=== PATIENT | female | born 1965 | race American Indian/Alaskan Native ===

== ENCOUNTER 2017-09-16 09:16 | Day surgery (SDC) | payer BC, SELFPAY ==
[~2017-09-16] VITALS: Ht 177.8 cm; Wt 93.1 kg
[~2017-09-16 09:16] MED LIST: BIOTIN10000 MCG PO; Black Cohosh40 M1 PO; CHOL10002 PO; FISH1000 PO; FLAX PO
== END 2017-09-16 11:39 | disposition home or self-care (01) ==
LOC: ORSCSDS 09:16
PROVIDERS: Internal Medicine Gastroenterology
PROC: 0DBC8ZX Excision of Ileocecal Valve, Via Natural or Artificial Opening Endoscopic, Diagnostic (ICD-10-PCS; principal; 2017-09-16 10:30)
PROC: 0DBM8ZX Excision of Descending Colon, Via Natural or Artificial Opening Endoscopic, Diagnostic (ICD-10-PCS; principal; 2017-09-16 10:30)
PROC: 0DBP8ZX Excision of Rectum, Via Natural or Artificial Opening Endoscopic, Diagnostic (ICD-10-PCS; principal; 2017-09-16 10:30)
PROC: 0DBN8ZX Excision of Sigmoid Colon, Via Natural or Artificial Opening Endoscopic, Diagnostic (ICD-10-PCS; principal; 2017-09-16 10:30)
DX: Z12.11 Encounter for screening for malignant neoplasm of colon (principal); Z86.010 Personal history of colon polyps; K57.30 Diverticulosis of large intestine without perforation or abscess without bleeding; Z87.891 Personal history of nicotine dependence; D12.0 Benign neoplasm of cecum; D12.3 Benign neoplasm of transverse colon; D12.4 Benign neoplasm of descending colon; K63.5 Polyp of colon
CPT/HCPCS: 88305; J7120

== ENCOUNTER → 2018-11-08 | Outpatient (CLI) | payer BC | END | disposition home or self-care (01) | LOC: LAB SHORT 14:06 → LAB EV 14:06 | DX: N39.0 Urinary tract infection, site not specified (principal) | CPT/HCPCS: 87077; 87086; 87186 ==

== ENCOUNTER 2019-06-11 10:36 | Day surgery (SDC) | payer BC ==
[~2019-06-11] VITALS: Ht 175.3 cm; Wt 115.4 kg
[~2019-06-11 10:36] MED LIST changes: +LETR2.5; +TERB250
[2019-06-11] MEDS ORDERED: PROGESTERONE100 MG PO (11:24)
--- NOTE | 2019-06-11 11:57 | NUR ---
06/11/19 1157 Silvia Dueñas IN TO SEE PATIENT,CONSENT OBTAINED,MEDICATED AND BLOCK DONE. PT TOLERATED VERY WELL.
== END 2019-06-11 14:45 | disposition home or self-care (01) ==
LOC: ORSCSDS 10:36
PROVIDERS: Orthopaedic Surgery
PROC: 0RNK4ZZ Release Left Shoulder Joint, Percutaneous Endoscopic Approach (ICD-10-PCS; principal; 2019-06-11 12:00)
PROC: 0LQ24ZZ Repair Left Shoulder Tendon, Percutaneous Endoscopic Approach (ICD-10-PCS; principal; 2019-06-11 12:00)
PROC: 0RBK4ZZ Excision of Left Shoulder Joint, Percutaneous Endoscopic Approach (ICD-10-PCS; principal; 2019-06-11 12:00)
DX: M75.112 Incomplete rotator cuff tear or rupture of left shoulder, not specified as traumatic (principal); M75.42 Impingement syndrome of left shoulder; M71.9 Bursopathy, unspecified; Z87.891 Personal history of nicotine dependence; E66.01 Morbid (severe) obesity due to excess calories; Z68.37 Body mass index [BMI] 37.0-37.9, adult
CPT/HCPCS: C1713; J0171; J0690; J1100; J1885; J2001; J2250; J2405; J2704; J2710; J3010; J7120

== ENCOUNTER → 2020-04-11 | Outpatient (CLI) | payer BC ==
[~2020-04-11] MED LIST changes: +PROGESTERONE100 MG PO
== END ==
LOC: LAB EV 18:10 → LAB SHORT 18:10
DX: N39.0 Urinary tract infection, site not specified (principal)
CPT/HCPCS: 87077; 87086; 87186

== ENCOUNTER → 2022-07-01 | Outpatient (CLI) | payer OTHER | LOC: LAB 11:00 → LAB SHORT 11:00 | DX: R30.0 Dysuria (principal) | CPT/HCPCS: 87077; 87086; 87186 ==

== ENCOUNTER 2022-10-01 10:13 | Day surgery (SDC) | payer OTHER ==
[~2022-10-01] VITALS: Ht 175.3 cm; Wt 112.8 kg
--- NOTE | 2022-10-01 12:47 | NUR ---
RECEIVED REPORT FROM ULISES BENITES. PT TOLERATING PEPSI WELL. REPORTS NO PAIN OR NAUSEA. Patient up to Ambulate independently. Gait steady. Discharge instructions reviewed with patient. Patient verbalizes understanding. Copy given to patient to take home. Lungs clear T/O to Auscultation. Discharged via wheelchair to private car for ride home WITH SISTER.
== END 2022-10-01 12:41 | disposition home or self-care (01) ==
LOC: ORSCSDS 10:13
PROVIDERS: Internal Medicine Gastroenterology
PROC: 0DBM8ZX Excision of Descending Colon, Via Natural or Artificial Opening Endoscopic, Diagnostic (ICD-10-PCS; principal; 2022-10-01 11:30)
PROC: 0DBN8ZX Excision of Sigmoid Colon, Via Natural or Artificial Opening Endoscopic, Diagnostic (ICD-10-PCS; principal; 2022-10-01 11:30)
PROC: 0DBL8ZX Excision of Transverse Colon, Via Natural or Artificial Opening Endoscopic, Diagnostic (ICD-10-PCS; principal; 2022-10-01 11:30)
PROC: 0DBK8ZX Excision of Ascending Colon, Via Natural or Artificial Opening Endoscopic, Diagnostic (ICD-10-PCS; principal; 2022-10-01 11:30)
DX: Z12.11 Encounter for screening for malignant neoplasm of colon (principal); Z86.010 Personal history of colon polyps; Z80.0 Family history of malignant neoplasm of digestive organs; D12.2 Benign neoplasm of ascending colon; D12.3 Benign neoplasm of transverse colon; D12.4 Benign neoplasm of descending colon; D12.5 Benign neoplasm of sigmoid colon; K57.30 Diverticulosis of large intestine without perforation or abscess without bleeding; Z87.891 Personal history of nicotine dependence; Z85.3 Personal history of malignant neoplasm of breast
CPT/HCPCS: 88305; J2704; J7120

== ENCOUNTER → 2022-11-16 | Outpatient (CLI) | payer OTHER | END | disposition home or self-care (01) | LOC: LAB SHORT 08:30 → LAB 08:30 | DX: R30.0 Dysuria (principal) | CPT/HCPCS: 87086 ==

== ENCOUNTER → 2023-06-09 | Outpatient (CLI) | payer OTHER | END | disposition home or self-care (01) | LOC: LAB SHORT 09:08 → LAB 09:08 | DX: R30.0 Dysuria (principal) | CPT/HCPCS: 87077; 87086; 87186 ==

== ENCOUNTER 2024-07-23 10:08 | Day surgery (SDC) | payer OTHER ==
[~2024-07-23] VITALS: Ht 175.3 cm; Wt 112.4 kg
[2024-07-23] VITALS (13 sets, daily range): BP systolic 108–147; BP diastolic 60–94
[~2024-07-23 10:08] MED LIST changes: -CHOL10002 PO; +CeFAZolin Sodium 2,000 MG VIAL ONE; +CeFAZolin Sodium 2,000 MG in NS 100 ML IV SCH; +Lactated Ringer's 1,000 ML IV SCH; +VITAMIN D31000 UNI1 PO; +propofoL 20 ML IV ONE
[2024-07-23] MEDS ORDERED: Rocuronium Bromide 10 MG/ML 5ML Injection IV ONE (10:09)
[2024-07-23] MEDS ORDERED: Dexamethasone Sod Phos 10 MG/ML 1ML VIAL ONE (10:09)
[2024-07-23] MEDS ORDERED: Midazolam HCl 1MG / ML 2ML Vial ONE (10:09)
[2024-07-23] MEDS ORDERED: Ondansetron HCl 2 MG / ML 2ML Vial ONE (10:09)
[2024-07-23] MEDS ORDERED: FentaNYL Citrate 50 MCG/ML 2 ML Injection ONE (10:09)
[2024-07-23] MEDS ORDERED: Bupivacaine 0.5% HCl 5 MG/ML 30MLVIAL ONE (10:40)
--- NOTE | 2024-07-23 10:48 | NUR ---
History, Chart, Medications and Allergies reviewed before start of procedure.Lungs clear T/O to Auscultation. Patient confirms NPO status and agrees with scheduled surgery. Patient reports completing Chlorhexadine shower X2 prior to admission to hospital. Pre-Op teaching done. Pt verbalizes understanding.
--- NOTE | 2024-07-23 10:48 | NUR ---
BLOOD DRAWN FROM IV FOR TYPE CHECK
[2024-07-23] MEDS ORDERED: HYDROmorphone HCl/Pf 1MG SYR ONE ×2 (11:53→13:41)
[2024-07-23] MEDS ORDERED: ePHEDrine Sulfate 50 MG/ML 1ML Injection ONE (12:10)
[2024-07-23] MEDS ORDERED: Sugammadex Sodium 200 MG/2ML SDV (100 MG/ML) ONE (12:48)
[2024-07-23] MEDS ORDERED: Ondansetron 4 MG TAB PO PRN (14:30)
[2024-07-23] MEDS ORDERED: Ondansetron HCl 2 MG / ML 2ML Vial IV PRN (14:30)
[2024-07-23] MEDS ORDERED: OxyCODONE 5 mg/Acetamin 325 mg TABLET PO PRN (14:30)
[2024-07-23] MEDS ORDERED: FLU VACC TS2024-25(6MOS UP)/PF 45 MCG/0.5 ML SYRINGE IM SCH (14:35)
[2024-07-23] MEDS ORDERED: Lactated Ringer's 1,000 ML IV SCH (14:35)
[2024-07-23] MEDS ORDERED: HYDROmorphone HCl/Pf 1MG SYR IV PRN (14:35)
[2024-07-23] MEDS ORDERED: Simethicone 80 MG Chew PO PRN (14:35)
[2024-07-23] MEDS ORDERED: Promethazine HCl 25 MG Tab PO PRN (14:35)
[2024-07-23] MEDS ORDERED: Naloxone HCl 0.4MG / ML 1ML Vial IV PRN (14:35)
[2024-07-23] MEDS ORDERED: Promethazine HCl 12.5 MG Supp PR PRN (14:40)
[2024-07-23] MEDS ORDERED: Ketorolac Tromethamine 30mg Vial IV PRN (15:05)
--- NOTE | 2024-07-23 15:05 | NUR ---
ARRIVAL PT ARRIVED TO UNIT FROM PACU S/P HYSTER WITH BSO. LAP SITES CDI WITH WOUND GLUE. SCANT DRAINAGE ON DINO PAD. SLID TO BED WITH SLIDE SHEET. PT REQUESTED PATEL REMOVED IMMEDIATLY. PT UP TO BATHROOM, FEELS URGE TO HAVE BOWEL MOVEMENT AND VOID. AMBULATED WELL WITH GB AND SBA. DENIES AND SOB, DIZZINESS, OR LIGHTHEADEDNESS. PT REPORTS PAIN TOLERABLE AT THIS TIME. DENIES NAUSEA.
--- NOTE | 2024-07-23 16:44 | NUR ---
shift summary s/p hyster with bso pt ambulating well to restroom, unable to void yet. encouraging po fluids. pain tolerable at this time since alves removed. abd binder in place. lap sites remain cdi. tristan pad with scant drainage changed when up to restroom. calls appropriatly. room air at this time.
[2024-07-23] MEDS ORDERED: CeFAZolin Sodium 2,000 MG in NS 100 ML IV SCH (19:00)
[2024-07-24 02:02] VITALS: BP 132/72
[2024-07-24 04:22] VITALS: BP 128/72
[2024-07-24 07:10] LABS: BASOPHILS ABSOLUTE AUTO 0.01 K/mm3 (0.00-0.23); BASOPHILS PERCENT AUTO 0 % (0-2); EOSINOPHILS PERCENT AUTO 0 % (0-6); Hemoglobin 14.4 g/dL (11.5-16.0); IMMATURE GRAN ABSOLUTE AUTO 0.05 K/mm3 (0.00-0.10); IMMATURE GRAN PERCENT AUTO 1 % (0-1); LYMPHOCYTES ABSOLUTE AUTO 1.78 K/mm3 (0.84-5.20); LYMPHOCYTES PERCENT AUTO 17 % (21-46); MONOCYTES PERCENT AUTO 7 % (4-13); Mean Corpuscular HGB 29.4 pg (26.0-34.0); Mean Corpuscular HGB Conc 34.3 g/dL (31.5-36.5); Mean Corpuscular Volume 86 fL (80-100); NEUTROPHILS ABSOLUTE AUTO 8.18 K/mm3 (1.96-9.15); NEUTROPHILS PERCENT AUTO 76 % (41-73); Platelet Count 261 K/mm3 (150-400); RDW Coefficient Variation 13.5 % (11.7-14.2); RDW Standard Deviation 42.5 fL (35.1-46.3); White Blood Cell Count 10.82 K/mm3 (4.00-11.30)
[2024-07-24 07:15] VITALS: BP 118/78
--- NOTE | 2024-07-24 07:37 | NUR ---
SHIFT SUMMARY NOC. PT POD 1 FOR LAP ASSIST VAG HYSTER. PT A/O X4. PT TOLERATING DIET AND VOIDING URINE. LAP SITES X4 C/D/I ASIDE FROM SOME BRUISING. ABDOMINAL BINDER IN PLACE. PT MAKES NEEDS KNOWN, CALL LIGHT IN REACH.
--- NOTE | 2024-07-24 09:58 | NUR ---
ASSUMPTION OF CARE THIS RN ASSUMED CARE AT APPROX 0715. VSS. PATIENT ALERT AND ORIENTED X4. COMMUNICATING NEEDS EFFECTIVELY. POD 1 TOTAL HYSTER - X4 LAP SITES WITH WOUND GLUE C/D/I. ABD BINDER IN PLACE. REPORTS SCANT BLEEDING ON DINO PAD. PAIN TOLERABLE @ THIS TIME. TOLERATING PO INTAKE. INDEPENDENT WITH ADLs - VOIDING. CALLS APPROPRIATELY FOR ASSISTANCE PRN. CALL LIGHT IN REACH.
[2024-07-24] MEDS ORDERED: Percocet 5-3251 EACH PO (12:14)
[2024-07-24] MEDS ORDERED: PROM25 PO (12:15)
[2024-07-24] MEDS ORDERED: SIME80CH PO (12:15)
--- NOTE | 2024-07-24 13:23 | NUR ---
DISCHARGE SUMMARY NO ACUTE CHANGES SINCE PREVIOUS DOCUMENTATION. WONDERLY ROUNDED THIS AFTERNOON - DC HOME ORDERED. POD 1 LAP TOTAL HYSTER WITH X4 LAP SITES. SITES C/D/I. ABD BINDER IN PLACE. TOLERATING PO INTAKE. PAIN MANAGED WITH PRESCRIBED THERAPY. VOIDING. SHOWERED PRIOR TO DC. IV REMOVED. DC EDUCATION PROVIDED - PATIENT STATES UNDERSTANDING. PATIENT TRANSFERRED OFF UNIT TO PERSONAL VEHICLE VIA WHEELCHAIR AT APPROX 1315. PERSONAL BELONGINGS WITH PATIENT.
== END 2024-07-24 13:15 | disposition home or self-care (01) ==
LOC: ORSCMMR 10:08 → ORD 11:15 → SURS 14:40 → ORSCMMR 07-24 13:15
PROVIDERS: Obstetrics & Gynecology
PROC: 0UT9FZZ Resection of Uterus, Via Natural or Artificial Opening With Percutaneous Endoscopic Assistance (ICD-10-PCS; principal; 2024-07-23 11:15)
PROC: 8E0W4CZ Robotic Assisted Procedure of Trunk Region, Percutaneous Endoscopic Approach (ICD-10-PCS; principal; 2024-07-23 11:15)
PROC: 0UT7FZZ Resection of Bilateral Fallopian Tubes, Via Natural or Artificial Opening With Percutaneous Endoscopic Assistance (ICD-10-PCS; principal; 2024-07-23 11:15)
PROC: 0UT2FZZ Resection of Bilateral Ovaries, Via Natural or Artificial Opening With Percutaneous Endoscopic Assistance (ICD-10-PCS; principal; 2024-07-23 11:15)
DX: R87.612 Low grade squamous intraepithelial lesion on cytologic smear of cervix (LGSIL) (principal); R87.810 Cervical high risk human papillomavirus (HPV) DNA test positive; N83.292 Other ovarian cyst, left side; N83.291 Other ovarian cyst, right side; Z85.3 Personal history of malignant neoplasm of breast; Z17.0 Estrogen receptor positive status [ER+]; Z80.41 Family history of malignant neoplasm of ovary; E66.9 Obesity, unspecified; Z68.36 Body mass index [BMI] 36.0-36.9, adult
CPT/HCPCS: 36415; 85025; 86850; 86900; 86901; 88307; A9270; J0690; J1100; J1171; J1885; J2250; J2405; J2704; J3010; J7120